=== PATIENT | male | born 1930 | race Caucasian/White ===

== ENCOUNTER 2018-05-25 07:10 | Day surgery (SDC) | payer OTHER ==
[~2018-05-25] VITALS: Ht 177.8 cm; Wt 62.4 kg
[2018-05-25] MEDS ORDERED: VENTOLIN HFA18 GM IH (07:58)
[2018-05-25] MEDS ORDERED: METOPROLOL SUCC25 MG PO (07:59)
[2018-05-25] MEDS ORDERED: CIALIS20 MG PO (08:00)
[2018-05-25] MEDS ORDERED: ALPRAZOLAM0.25 M2 PO (08:00)
[2018-05-25] MEDS ORDERED: ASPIR 8181 M1 PO (08:01)
[2018-05-25 14:48] VITALS: BP 148/62
[2018-05-25 19:37] VITALS: BP 137/65
[2018-05-26 00:35] VITALS: BP 120/62
[2018-05-26 04:48] VITALS: BP 160/71
[2018-05-26 04:58] LABS: BASOPHIL (%) 0.4 % (0-1); EOSINOPHIL (%) 3.1 % (0-5); EOSINOPHIL COUNT 0.2 K/uL (0-0.3); HEMATOCRIT 37.2 % (38.0-50.0); IMMATURE GRANULOCYTE (%) 0.7 % (0.0-0.7); LYMPHOCYTE (%) 14.7 % (15-42); LYMPHOCYTE COUNT 1.1 K/uL (1.0-2.8); MCH 32.6 PG (29.0-34.0); MCHC 33.9 G/DL (30.0-36.0); MCV 96.1 FL (86-99); MONOCYTE (%) 10.4 % (3-12); MONOCYTE COUNT 0.8 K/uL (0-0.8); NEUTROPHIL (%) 70.7 % (45-76); NEUTROPHIL COUNT 5.2 K/uL (1.8-6.4); PLATELET COUNT 136 K/uL (156-360); RBC DIS.WIDTH-CV 13.6 % (11.8-14.6); RBC DIS.WIDTH-SD 48.4 % (39-53); RED BLOOD COUNT 3.87 M/uL (4.00-5.50); WHITE BLOOD COUNT 7.3 K/uL (4.1-10.2)
[2018-05-26 05:17] LABS: HEMOGLOBIN 12.6 G/DL (12.5-16.6)
[2018-05-26 05:26] LABS: CHLORIDE 108 MEQ/L (99-109); CREATININE 0.7 MG/DL (0.6-1.3); GFR ESTIMATE (CALCULATED) > 59 mL/min/ (58.99-99999); GLUCOSE 89 mg/dL (70-99); SODIUM 138 MEQ/L (136-147); UREA NITROGEN (BUN) 16 mg/dL (9-23)
[2018-05-26 06:57] VITALS: BP 137/66
[2018-05-26] MEDS ORDERED: ASPIRIN EC325 MG PO (07:21)
[2018-05-26] MEDS ORDERED: CLOPIDOGREL75 MG PO (07:21)
[2018-05-26] MEDS ORDERED: ATORVASTATIN CA40 MG PO (07:21)
== END 2018-05-26 08:35 | disposition home or self-care (01) ==
LOC: CATH 07:10 → 2SOUTH 11:40 → 4EAST 11:40 → ENRESERV 12:10 → 2SOUTH 12:36 → 4EAST 14:31
PROVIDERS: Internal Medicine Cardiovascular Disease
DX: I25.110 Atherosclerotic heart disease of native coronary artery with unstable angina pectoris (principal); E78.5 Hyperlipidemia, unspecified; Z79.82 Long term (current) use of aspirin
CPT/HCPCS: 80048; 85025; 85347; 93005; C1725; C1769; C1874; C1887; G0378; J1644; J2250; J3010; J7040